=== PATIENT | male | born 1990 | race Caucasian/White ===

== ENCOUNTER 2017-09-10 17:47 | Emergency (ER) | payer SELFPAY ==
[2017-09-10] MEDS ORDERED: Acetaminophen/HYDROcodone 325-5 MG Tab PO ONE (19:09)
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
[2017-09-10 20:04] VITALS: BP 108/76
--- NOTE | 2017-09-11 07:22 | CR ---
Right shoulder: Two views of the right shoulder obtained. Mildly comminuted and displaced fracture is seen within the right clavicular shaft. Glenohumeral joint appears within normal limits. Acromioclavicular joint appears aligned. No additional abnormality is seen. Impression: 1. Right clavicle fracture as described above. Diagnostic code #3
== END 2017-09-10 20:02 | disposition home or self-care (01) ==
LOC: JD.ED 17:47
DX: S42.021A Displaced fracture of shaft of right clavicle, initial encounter for closed fracture (principal); F17.210 Nicotine dependence, cigarettes, uncomplicated; V87.8XXA Person injured in other specified noncollision transport accidents involving motor vehicle (traffic), initial encounter
CPT/HCPCS: 73030; 99283; A9270

== ENCOUNTER 2018-05-10 01:16 | Emergency (ER) | payer MEDICAID ==
[2018-05-10 01:38] VITALS: BP 155/104
--- NOTE | 2018-05-10 01:57 | EDM.PDOC ---
ED HPI GENERAL MEDICAL PROBLEM - General Chief Complaint: ENT Problem Stated Complaint: TOOTHACHE Time Seen by Provider: 05/10/18 01:32 Source of Information: Reports: Patient History Limitations: Reports: No Limitations - History of Present Illness INITIAL COMMENTS - FREE TEXT/NARRATIVE: The patient presents with left upper tooth pain. This started a few days ago. He has a broken tooth and the filling fell out. He does not have a dentist. He has no fever or chills. Onset: Sudden Duration: Day(s): Location: Reports: Other (Left upper jaw) Quality: Reports: Sharp Severity: Severe Improves with: Reports: None Worsens with: Reports: None Associated Symptoms: Reports: No Other Symptoms Left Upper Oral/Mouth Pain Score (Numeric/FACES): 8 - Related Data Allergies Allergy/AdvReac Type Severity Reaction Status Date / Time No Known Allergies Allergy Verified 05/10/18 01:38 Home Meds: Home Meds Acetaminophen/HYDROcodone [[place] 325-5 MG] 1 tab PO Q6H PRN #20 tablet 09/10/17 [Rx] Hydrocodone/Acetaminophen [Hydrocodon-Acetaminophen 5-325] 1 - 2 each PO Q6HR PRN #15 tablet 05/10/18 [Rx] Penicillin V Potassium 500 mg PO Q6HR #40 tab 05/10/18 [Rx] Past Medical History - Past Health History Medical/Surgical History: Denies Medical/Surgical History Social & Family History - Tobacco Use Smoking Status *Q: Current Every Day Smoker Years of Tobacco use: 15 Packs/Tins Daily: 0.7 - Caffeine Use Caffeine Use: Reports: Coffee, Energy Drinks, Soda, Tea - Recreational Drug Use Recreational Drug Use: Yes Recreational Drug Type: Reports: Methamphetamine Recreational Drug Use Frequency: Monthly ED ROS ENT - Review of Systems Review Of Systems: See Below Constitutional: Reports: No Symptoms HEENT: Reports: Dental Pain Respiratory: Reports: No Symptoms Cardiovascular: Reports: No Symptoms Endocrine: Reports: No Symptoms GI/Abdominal: Reports: No Symptoms : Reports: No Symptoms Musculoskeletal: Reports: No Symptoms ED EXAM, ENT - Physical Exam Exam: See Below Exam Limited By: No Limitations General Appearance: Alert, No Apparent Distress Ears: Normal External Exam Nose: Normal Inspection Mouth/Throat: Other (Decayed 1st molar to the left upper jaw with erythema and pain upon palpation) Course - Vital Signs Last Recorded V/S: Last Vital Signs Temp 97.4 F 05/10/18 01:31 Pulse 116 H 05/10/18 01:31 Resp 18 05/10/18 01:31 BP 155/104 H 05/10/18 01:31 Pulse Ox 100 05/10/18 01:31 Departure - Departure Time of Disposition: 02:00 Disposition: Home, Self-Care 01 Condition: Good Clinical Impression: Pain, dental, Dental decay, Dental abscess - Discharge Information *PRESCRIPTION DRUG MONITORING PROGRAM REVIEWED*: No *COPY OF PRESCRIPTION DRUG MONITORING REPORT IN PATIENT NINI: No Prescriptions: Hydrocodone/Acetaminophen [Hydrocodon-Acetaminophen 5-325] 1 - 2 each PO Q6HR PRN #15 tablet PRN Reason: Pain Penicillin V Potassium 500 mg PO Q6HR #40 tab Referrals: PCP,None [Primary Care Provider] - Additional Instructions: Take the medication as prescribed. Follow up with a dentist this week. Please return if you are worse.
== END 2018-05-10 02:09 | disposition home or self-care (01) ==
LOC: JD.ED 01:16
DX: K04.7 Periapical abscess without sinus (principal); F17.210 Nicotine dependence, cigarettes, uncomplicated
CPT/HCPCS: 99283

== ENCOUNTER 2020-01-04 13:10 | Emergency (ER) | payer MEDICAID, OTHER, SELFPAY ==
--- NOTE | 2020-01-04 13:22 | EDM.PDOC ---
ED HPI GENERAL MEDICAL PROBLEM - General Chief Complaint: Laceration Stated Complaint: R PALM LAC Time Seen by Provider: 01/04/20 13:22 Source of Information: Reports: Patient History Limitations: Reports: No Limitations - History of Present Illness INITIAL COMMENTS - FREE TEXT/NARRATIVE: 29-year-old male presents to the ED with a self-inflicted laceration to the thenar eminence or palmar aspect of his right hand. This occurred last evening about 1800 hrs. when he slipped with a razor blade knife. Patient closed up the wound best he could and attends the ED nearly 20 hours after injury. He is not sure when his last tetanus toxoid was administered. Patient has his wound wrapped quite well. He did not place any topical antibiotic on the wound. Of note he is left-hand dominant. Onset: Sudden Onset Date: 01/03/20 Onset Time: 18:00 Duration: Hour(s):, Constant Location: Reports: Upper Extremity, Right (Suffered a jagged linear laceration to the thenar eminence of his right hand.) Quality: Reports: Ache, Throbbing Severity: Mild (Mild throbbing) Improves with: Reports: Rest Worsens with: Reports: Movement (His thumb.) Context: Reports: Trauma. 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 (see below) Right Finger-Thumb Pain Score (Numeric/FACES): 4 - Related Data Allergies Allergy/AdvReac Type Severity Reaction Status Date / Time No Known Allergies Allergy Verified 05/10/18 01:38 Home Meds: Home Meds Acetaminophen/HYDROcodone [[place] 325-5 MG] 1 tab PO Q6H PRN #20 tablet 09/10/17 [Rx] Hydrocodone/Acetaminophen [Hydrocodone-Acetamin 5-325 mg] 1 - 2 each PO Q6HR PRN #15 tablet 05/10/18 [Rx] Penicillin V Potassium 500 mg PO Q6HR #40 tab 05/10/18 [Rx] Doxycycline [Vibra-Tabs] 100 mg PO Q12HR #20 tab 01/04/20 [Rx] Past Medical History - Past Health History Medical/Surgical History: Denies Medical/Surgical History HEENT History: Reports: Other (See Below) (Chronic dental problems.) Social & Family History - Caffeine Use Caffeine Use: Reports: Coffee, Energy Drinks, Soda, Tea - Living Situation & Occupation Living situation: Reports: Single Occupation: Unemployed ED ROS GENERAL - Review of Systems Review Of Systems: See Below Constitutional: Reports: No Symptoms HEENT: Reports: Dental Pain Respiratory: Reports: No Symptoms Cardiovascular: Reports: No Symptoms Endocrine: Reports: No Symptoms GI/Abdominal: Reports: No Symptoms : Reports: No Symptoms Musculoskeletal: Reports: No Symptoms Skin: Reports: No Symptoms, Other (Laceration thenar eminence of right hand from a razor blade last evening at home.) Neurological: Reports: No Symptoms Psychiatric: Reports: No Symptoms Hematologic/Lymphatic: Reports: No Symptoms Immunologic: Reports: No Symptoms ED EXAM, SKIN/RASH Exam: See Below Exam Limited By: No Limitations General Appearance: Alert, WD/WN, No Apparent Distress, Other (Vital signs are stable.) Extremities: Other (The jagged 3.5 cm laceration along the thenar eminence of his right hand. Wound appears to be fairly superficial except in one portion where approximate 1 cm is deeper than the others. The wound is slightly macerated at this time from the bandage that he has had in place. There is no active bleeding. He has full range of motion of his thumb and normal sensation to both the ulnar and radial aspects of his distal thumb. Flexion extension of the thumb are intact with no evidence of tendon injury. He is unable to oppose his thumb to the fifth finger due to swelling of the thenar eminence. There is ecchymoses throughout the thenar eminence. Notified. There is no signs of infection at this time.) Neurological: Alert, Oriented, CN II-XII Intact, Normal Cognition, Normal Gait Psychiatric: Normal Affect, Normal Mood Skin: Warm, Other (Laceration to the volar aspect of his right hand over the thenar eminence.). No: Intact Location, Skin: Other (History of present illness.) Course - Vital Signs Last Recorded V/S: Last Vital Signs Temp 37.1 C 01/04/20 13:29 Pulse 103 H 01/04/20 13:29 Resp 20 01/04/20 13:29 BP 127/85 01/04/20 13:29 Pulse Ox 97 01/04/20 13:29 - Orders/Labs/Meds Orders: Active Orders 24 hr Category Date Time Status Vaccines to be Administered [RC] PER UNIT ROUTINE Care 01/04/20 13:28 Active Meds: Medications Discontinued Medications Generic Name Dose Route Start Last Admin Trade Name Yuli PRN Reason Stop Dose Admin Diphtheria/Tetanus/Acell Pertussis 0.5 ml 01/04/20 13:27 Adacel IM 01/04/20 13:28 .ONCE ONE - Radiology Interpretation Free Text/Narrative:: 29-year-old male presents to the ED with a laceration to the volar aspect of his right hand over the thenar eminence. This occurred when he slipped with a razor knife last evening at home at approximately 1800 hrs. Patient placed direct pressure on the wound to get it to stop bleeding and has it wrapped in a bandage. The wound itself is superficial and approximately 2 cm in deep and approximately 1 cm area. Wound edges are fairly well opposed. It is too late for suture repair. There is no is of active infection. He has normal sensation to his thumb with no evidence of tendon or neurovascular injury. Wound will be cleansed and then Steri-Stripped closed. He will be placed on doxycycline 100 mg twice daily for the next 10 days to prevent secondary wound infection. His tetanus diphtheria pertussis vaccine will be updated today since he cannot member when he had his last one. He will follow-up if any signs of infection develop. Steri-Strips will fall off on their own over the next 5 to 10 days. Departure - Departure Time of Disposition: 13:33 Disposition: Home, Self-Care 01 Condition: Fair Clinical Impression: Hand laceration Qualifiers: Encounter type: initial encounter Foreign body presence: without foreign body Laterality: right Qualified Code(s): S61.411A - Laceration without foreign body of right hand, initial encounter - Discharge Information *PRESCRIPTION DRUG MONITORING PROGRAM REVIEWED*: Not Applicable *COPY OF PRESCRIPTION DRUG MONITORING REPORT IN PATIENT NINI: Not Applicable Prescriptions: Doxycycline [Vibra-Tabs] 100 mg PO Q12HR #20 tab Instructions: Laceration Care, Adult, Wound Care, Adult Referrals: PCP,None [Primary Care Provider] - Forms: ED Department Discharge Additional Instructions: Evaluation in the emergency room today in regards to a laceration over the palmar aspect of your right hand which we called the thenar eminence. This is over the muscles of the right thumb area. This occurred last evening unfortunately outside of the limits of safe laceration repair with sutures. Wound was cleansed and Steri-Stripped together. Wound should be covered to keep it clean. Take oral antibiotic doxycycline 100 mg twice daily for the next 10 days to prevent secondary wound infection from occurring. The Steri-Strips will fall off on their own over the next 5 to 8 days. The wound should be completely healed in 10 days time. Return to medical care if any signs of infection develop such as increased redness, swelling or obvious pus. Your tetanus diphtheria and pertussis vaccine was updated today and is good for the next 10 years. Sepsis Event Note (ED) - Focused Exam Vital Signs: Vital Signs Temp Pulse Resp BP Pulse Ox 01/04/20 13:29 37.1 C 103 H 20 127/85 97 - My Orders Last 24 Hours: My Active Orders 01/04/20 13:28 Vaccines to be Administered [RC] PER UNIT ROUTINE - Assessment/Plan Last 24 Hours: My Active Orders 01/04/20 13:28 Vaccines to be Administered [RC] PER UNIT ROUTINE
[2020-01-04] MEDS ORDERED: Diphtheria,Pertussis(Acell),Tetanus Vaccine 0.5 ML Syringe IM ONE (13:27)
[2020-01-04 13:31] VITALS: BP 127/85; PULSE 103
== END 2020-01-04 14:30 | disposition home or self-care (01) ==
LOC: JD.ED 13:10
DX: S61.411A Laceration without foreign body of right hand, initial encounter (principal); Z23 Encounter for immunization; W27.8XXA Contact with other nonpowered hand tool, initial encounter
CPT/HCPCS: 90471; 90715; 99282; 99283

== ENCOUNTER 2020-09-24 12:30 | Emergency (ER) | payer SELFPAY ==
[2020-09-24 12:44] VITALS: BP 139/90; PULSE 72
[2020-09-24] MEDS ORDERED: Dextrose 5%-0.9% NaCl 1,000 ML ONE (13:05)
[2020-09-24] MEDS ORDERED: HYDROmorphone 0.5 MG/0.5 ML Syringe ONE (13:06)
[2020-09-24] MEDS ORDERED: Ketorolac 30 MG/ML SDV ONE (13:06)
[2020-09-24] MEDS ORDERED: Metoclopramide 10 MG/2 ML SDV ONE (13:07)
[2020-09-24] MEDS ORDERED: Metoclopramide 10 MG/2 ML SDV IVPUSH ONE (13:14)
[2020-09-24] MEDS ORDERED: HYDROmorphone 0.5 MG/0.5 ML Syringe IVPUSH ONE (13:15)
[2020-09-24] MEDS ORDERED: Ketorolac 30 MG/ML SDV IVPUSH SCH (13:15)
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
--- NOTE | 2020-09-24 14:04 | CT ---
CT abdomen and pelvis Technique: Multiple axial sections were obtained from above the dome of the diaphragm inferiorly through the pubic symphysis. Intravenous and oral contrast was not utilized. Study has been performed as a ureteral stone protocol. Comparison: No prior abdomen or pelvis imaging is available. Findings: Multiple small nonobstructing calculi are seen within both kidneys. Right ureter is mildly prominent. There is an obstructing stone within the mid to distal right ureter measuring 5.8 cm. This occurs slightly below the level of the iliac crests. Other portions of the ureter show no additional abnormal calculi. Visualized lung bases show minimal left basilar atelectasis. Liver contains no focal abnormality. Spleen size is normal. Adrenal glands show no nodule. No abnormality is appreciated within the pancreas. Gallbladder contains no calcified gallstones. Abdominal aorta shows no aneurysm. No retroperitoneal adenopathy or mesenteric abnormalities are seen. No pelvic mass or adenopathy is identified. Appendix is seen which is normal in size. Bone window settings were reviewed which show nothing acute for the patient's age. Impression: 1. Small obstructing calculus measuring 5.8 mm located within the mid to distal right ureter slightly past the level of the iliac crests. 2. Multiple small nonobstructing calculi within both kidneys. 3. No other acute abnormality is appreciated. Diagnostic code #3
[2020-09-24] MEDS ORDERED: Dextrose 5%-0.9% NaCl 1,000 ML IV SCH (14:30)
== END 2020-09-24 14:30 | disposition home or self-care (01) ==
LOC: JD.ED 12:30
DX: N20.2 Calculus of kidney with calculus of ureter (principal); Z72.0 Tobacco use
CPT/HCPCS: 74176; 74176-26; 96374; 96375; 99284; 99284-25; J1170; J1885; J2765; J7042

== ENCOUNTER 2021-09-09 20:38 | Emergency (ER) | payer SELFPAY ==
[2021-09-09] MEDS ORDERED: Sodium Chloride 0.9% 10 ML Syringe FLUSH PRN (22:11)
[2021-09-09 22:13] VITALS: BP 128/91; PULSE 77
[2021-09-09] MEDS ORDERED: Tamsulosin 0.4 MG Cap.ER PO ONE (23:14)
[2021-09-09] MEDS ORDERED: Acetaminophen/HYDROcodone 325-5 MG Tab PO ONE (23:14)
== END 2021-09-09 23:37 | disposition home or self-care (01) ==
LOC: JD.ED 20:38
DX: N13.2 Hydronephrosis with renal and ureteral calculous obstruction (principal); F17.210 Nicotine dependence, cigarettes, uncomplicated; Z79.899 Other long term (current) drug therapy; Z86.16 Personal history of COVID-19
CPT/HCPCS: 36415; 74176; 80053; 81001; 85025; 87086; 99284; A9270